=== PATIENT | female | born 1960 | race Caucasian/White ===

== ENCOUNTER → 2016-10-03 | Outpatient (CLI) | payer MEDICARE, MEDICAID ==
[2016-10-03 14:12] VITALS: BP 103/67
== END ==
LOC: MHUC 13:47
PROVIDERS: ATTEND Physician Assistant
DX: J40 Bronchitis, not specified as acute or chronic (principal); E10.9 Type 1 diabetes mellitus without complications
CPT/HCPCS: 99213

== ENCOUNTER → 2016-11-29 | Outpatient (REF) | payer MEDICARE, MEDICAID ==
[~2016-11-29] MED LIST: AGM500T PO; BACI3.5O6 OU; CA C1TAB66 PO; CALC-140 PO; CEFD300C PO; CHOL200012 PO; CITA20TA12 PO; DEXT15SY PO; FOLI1TAB32 PO; INSU100V2 SC; INSU100V2 SQ; INSU100V5 SC; INSU100V5 SQ; LEVO175T2 PO; LVT.15T PO; MINO100C2 PO; NITR100C3 PO; OMEP20CA6 PO; PAMI30VI8 SC; TERBIN250T PO; [UNRECOGNIZED DRUG - OTHER] EXT
[2016-11-29 09:50] LABS: ANION GAP 18.3 MEQ/L (3-15)
== END ==
LOC: LAB 07:38
PROVIDERS: ATTEND Nurse Practitioner
DX: E03.4 Atrophy of thyroid (acquired) (principal); E11.9 Type 2 diabetes mellitus without complications; Z79.4 Long term (current) use of insulin; Q90.9 Down syndrome, unspecified
CPT/HCPCS: 80048; 84439; 84443

== ENCOUNTER → 2016-12-12 | Outpatient (CLI) | payer MEDICARE, MEDICAID | LOC: EMS 15:30 | PROVIDERS: ATTEND Emergency Medicine | DX: Z53.20 Procedure and treatment not carried out because of patient's decision for unspecified reasons (principal) ==